=== PATIENT | female | born 1955 | race Caucasian/White ===

== ENCOUNTER 2021-08-10 09:19 | Outpatient (CLI) | payer MEDICARE, BC | END 2021-08-10 09:20 | disposition home or self-care (01) | LOC: CSHMAMMO 09:19 | PROVIDERS: ATTEND Obstetrics & Gynecology | DX: Z12.31 Encounter for screening mammogram for malignant neoplasm of breast (principal) | CPT/HCPCS: 77063; 77067 ==

== ENCOUNTER 2021-09-27 15:26 | Outpatient (CLI) | payer MEDICARE, BC | END 2021-09-27 15:27 | disposition home or self-care (01) | LOC: CSHMAMMO 15:26 | PROVIDERS: ATTEND Obstetrics & Gynecology | DX: Z13.820 Encounter for screening for osteoporosis (principal); M85.89 Other specified disorders of bone density and structure, multiple sites | CPT/HCPCS: 77080 ==

== ENCOUNTER 2022-08-25 09:20 | Outpatient (CLI) | payer MEDICARE, BC | END 2022-08-25 09:21 | disposition home or self-care (01) | LOC: CSHMAMMO 09:20 | PROVIDERS: ATTEND Family Medicine | DX: R92.2 Inconclusive mammogram (principal) | CPT/HCPCS: 76642; 77065; G0279 ==

== ENCOUNTER 2024-02-17 08:01 | Emergency (ER) | payer MEDICARE ==
[2024-02-17] MEDS ORDERED: Lidocaine 4% Patch ONE (08:39)
[2024-02-17] MEDS ORDERED: Acetaminophen 500 MG TAB ONE (08:39)
== END 2024-02-17 10:04 | disposition home or self-care (01) ==
LOC: CSHERS 08:01
DX: S20.212A Contusion of left front wall of thorax, initial encounter (principal); W18.09XA Striking against other object with subsequent fall, initial encounter; Y93.89 Activity, other specified; Y92.009 Unspecified place in unspecified non-institutional (private) residence as the place of occurrence of the external cause
CPT/HCPCS: 99283